=== PATIENT | female | born 1985 | race Caucasian/White ===

== ENCOUNTER 2018-01-18 19:38 | Emergency (ER) | payer OTHER ==
[~2018-01-18] VITALS: Ht 170.2 cm; Wt 48.0 kg
[2018-01-18] MEDS ORDERED: IBUPROFEN 600MG TABLET PO ONE (22:30)
[2018-01-18 23:15] VITALS: BP 116/70
== END 2018-01-18 23:19 | disposition home or self-care (01) ==
LOC: ER 19:38
DX: M25.532 Pain in left wrist (principal); R20.0 Anesthesia of skin; J45.909 Unspecified asthma, uncomplicated; Z90.89 Acquired absence of other organs; Z98.890 Other specified postprocedural states; Z91.040 Latex allergy status
CPT/HCPCS: 29125; 73110; 81025; 99284; A4565